=== PATIENT | male | born 1950 | race Caucasian/White ===

== ENCOUNTER → 2017-06-20 | Outpatient (CLI) | payer OTHER ==
[~2017-06-20] MED LIST: ADRENAL COMPLEX PO; ARGI500T2 PO; ASPI-496 PO; ATOR20TA9 PO; BIMA2.5D EACHEYE; CAND32TA7 PO; CHOL500015 PO; CORTISOL MANAGER PO; HAWT150C PO; MAGN100T6 PO; METO25TA91 PO; MULT1TAB57 PO; MULTIMINERAL PO; NIAC500T9 PO; OMEG-26 PO; PHOS1POW PO; PUMP160C2 PO; THYR60TA PO; UBID100C11 PO; [UNRECOGNIZED DRUG - OTHER] PO
== END | disposition home or self-care (01) ==
LOC: ROC 07:25
PROVIDERS: ATTEND Radiology Radiation Oncology
DX: C61 Malignant neoplasm of prostate (principal)
CPT/HCPCS: 99212; G0463

== ENCOUNTER → 2017-12-02 | Outpatient (CLI) | payer MEDICARE, OTHER ==
[~2017-12-02] MED LIST changes: -UBID100C11 PO; +UBID100C41 PO
== END ==
LOC: ROC 08:05
PROVIDERS: ATTEND Radiology Radiation Oncology
DX: C61 Malignant neoplasm of prostate (principal)
CPT/HCPCS: G0463

== ENCOUNTER → 2018-11-03 | Outpatient (CLI) | payer MEDICARE ==
[~2018-11-03] MED LIST changes: +ATOR20TA37 PO; -ATOR20TA9 PO
== END | disposition home or self-care (01) ==
LOC: ROC 07:06
PROVIDERS: ATTEND Radiology Radiation Oncology
DX: Z08 Encounter for follow-up examination after completed treatment for malignant neoplasm (principal); C61 Malignant neoplasm of prostate; R31.9 Hematuria, unspecified
CPT/HCPCS: G0463

== ENCOUNTER → 2018-11-27 | Outpatient (CLI) | payer MEDICARE | END | disposition home or self-care (01) | LOC: CFH 07:22 | PROVIDERS: ATTEND Registered Nurse Registered Nurse First Assistant | DX: Z02.9 Encounter for administrative examinations, unspecified (principal) ==

== ENCOUNTER → 2018-12-29 | Outpatient (CLI) | payer MEDICARE ==
[~2018-12-29] MED LIST changes: +REGADENOSON 0.4 MG/5 ML SYRINGE ONE
== END | disposition home or self-care (01) ==
LOC: CFH 08:25
PROVIDERS: ATTEND Physician Assistant
DX: I10 Essential (primary) hypertension (principal); I25.10 Atherosclerotic heart disease of native coronary artery without angina pectoris; R29.898 Other symptoms and signs involving the musculoskeletal system
CPT/HCPCS: 78452; 93017; A9502; J2785

== ENCOUNTER → 2019-05-14 | Outpatient (CLI) | payer MEDICARE ==
[~2019-05-14] MED LIST changes: -REGADENOSON 0.4 MG/5 ML SYRINGE ONE
== END | disposition home or self-care (01) ==
LOC: ROC 07:43
PROVIDERS: ATTEND Radiology Radiation Oncology
DX: C61 Malignant neoplasm of prostate (principal)
CPT/HCPCS: G0463

== ENCOUNTER 2019-07-02 06:56 | Outpatient (CLI) | payer MEDICARE | END 2019-07-02 23:59 | disposition home or self-care (01) | LOC: CVU 06:56 | PROVIDERS: ATTEND Internal Medicine Cardiovascular Disease | DX: I34.0 Nonrheumatic mitral (valve) insufficiency (principal); I25.10 Atherosclerotic heart disease of native coronary artery without angina pectoris; I10 Essential (primary) hypertension | CPT/HCPCS: 93306 ==

== ENCOUNTER 2020-04-20 09:14 | Outpatient (CLI) | payer MEDICARE ==
[2020-04-20] MEDS ORDERED: PHOS1POW PO (10:17)
[2020-04-20] MEDS ORDERED: Vitamin B12 SL (10:17)
[2020-04-20] MEDS ORDERED: LEVO200T5 PO (10:17)
[2020-04-20] MEDS ORDERED: [UNRECOGNIZED DRUG - OTHER] PO (10:17)
[2020-04-20] MEDS ORDERED: saw palmetto PO (10:17)
[2020-04-20] MEDS ORDERED: METO-93 PO (10:17)
[2020-04-20] MEDS ORDERED: milk thistle PO (10:17)
[2020-04-20] MEDS ORDERED: adrenal support PO (10:17)
[2020-04-20 10:43] LABS: BASOPHILS # (AUTO) 0.03 x10^3/uL (0-0.1); BASOPHILS % (AUTO) 1 % (0-1); EOSINOPHILS % (AUTO) 4 % (1-7); LYMPHOCYTES # (AUTO) 1.68 x10^3/uL (1-3.4); LYMPHOCYTES % (AUTO) 33 % (22-44); MD NO; MEAN CORPUSCULAR HEMOGLOBIN 35.4 pg (27.5-34.5); MEAN CORPUSCULAR HGB CONC 33.8 g/dL (33.2-36.2); MEAN CORPUSCULAR VOLUME 104.7 fL (81-97); MONOCYTES # (AUTO) 0.59 x10^3/uL (0.2-0.8); MONOCYTES % (AUTO) 12 % (2-9); NEUTROPHILS # (AUTO) 2.57 x10^3/uL (1.8-6.8); NEUTROPHILS % (AUTO) 51 % (42-75); PLATELET COUNT 146 x10^3/uL (130-400); RED BLOOD COUNT 4.44 x10^6/uL (4.38-5.82); RED CELL DISTRIBUTION WIDTH 13.3 % (9.4-14.8)
[2020-04-20 10:44] LABS: PROTHROMBIN TIME 10.6 Seconds (9.6-11.5)
[2020-04-20 10:50] LABS: ALANINE AMINOTRANSFERASE 44 U/L (12-78); ALBUMIN 3.9 g/dL (3.4-5.0); ANION GAP 6 mmol/L (5-15); CALCIUM 9.5 mg/dL (8.5-10.1); CHLORIDE 109 mmol/L (98-107); CREATININE 1.01 mg/dL (0.7-1.3)
[2020-04-20 10:53] LABS: ALKALINE PHOSPHATASE 75 U/L (45-117); BILIRUBIN,TOTAL 1.6 mg/dL (0.2-1.0); TOTAL PROTEIN 7.7 g/dL (6.4-8.2)
== END 2020-04-20 23:59 | disposition home or self-care (01) ==
LOC: STAR 09:14
PROVIDERS: ATTEND Urology
DX: Z01.818 Encounter for other preprocedural examination (principal); N32.89 Other specified disorders of bladder; R94.31 Abnormal electrocardiogram [ECG] [EKG]
CPT/HCPCS: 36415; 80053; 85025; 85610; 87086; 93005; U0001-CS

== ENCOUNTER 2020-04-27 06:02 | Day surgery (SDC) | payer MEDICARE ==
[~2020-04-27] VITALS: Ht 177.8 cm; Wt 126.0 kg
[~2020-04-27 06:02] MED LIST changes: +LEVO200T5 PO; +METO-93 PO; +Vitamin B12 SL; +[UNRECOGNIZED DRUG - OTHER] PO; +adrenal support PO; +milk thistle PO; +saw palmetto PO
[2020-04-27 06:35] VITALS: BP 170/68
[2020-04-27] MEDS ORDERED: LACTATED RINGERS 1,000 ML IV SCH (06:38)
[2020-04-27] MEDS ORDERED: CHLORHEXIDINE 15 ML UDC MM ONE (07:00)
[2020-04-27] MEDS ORDERED: ROCURONIUM 10MG/ML,5ML ONE (07:31)
[2020-04-27] MEDS ORDERED: FENTANYL PF 100 MCG/2ML ONE (07:31)
[2020-04-27] MEDS ORDERED: PROPOFOL 10 MG/ML, 20ML ONE (07:31)
[2020-04-27] MEDS ORDERED: MIDAZOLAM 1 MG/ML, 2ML ONE (07:31)
[2020-04-27] MEDS ORDERED: DEXAMETHASONE 4 MG/ML, 1ML ONE (07:33)
[2020-04-27] MEDS ORDERED: ONDANSETRON 2MG/ML, 2ML ONE (07:33)
[2020-04-27] MEDS ORDERED: CEFAZOLIN 1,000 MG ONE ×2 (07:34)
[2020-04-27] MEDS ORDERED: SUGAMMADEX 200 MG/2 ML IVPush ONE (08:15)
[2020-04-27] MEDS ORDERED: OPIUM/BELLADONNA SUPP.RECT 16.2-30 MG ONE (08:28)
[2020-04-27] MEDS ORDERED: KETOROLAC 30 MG/1 ML IVPush PRN (08:30)
[2020-04-27] MEDS ORDERED: HYDROmorphone 1 MG/ML, 1ML INJ IVPush PRN (08:30)
[2020-04-27] MEDS ORDERED: ONDANSETRON 2MG/ML, 2ML IVPush PRN (08:30)
[2020-04-27] MEDS ORDERED: METOPROLOL 1 MG/ML, 5ML IV PRN (08:30)
[2020-04-27] MEDS ORDERED: FENTANYL PF 100 MCG/2ML IV PRN (08:30)
[2020-04-27] MEDS ORDERED: LABETALOL 5MG/ML, 20ML IV PRN (08:30)
[2020-04-27] MEDS ORDERED: OXYcodone 5 MG/5 ML ORAL.SOL UDC PO PRN (08:30)
[2020-04-27] MEDS ORDERED: OPIUM/BELLADONNA SUPP.RECT 16.2-30 MG PR ONE (09:00)
[2020-04-27] MEDS ORDERED: MITOMYCIN INTVESIC ONE (09:00)
[2020-04-27] MEDS ORDERED: SODIUM CHLORIDE 0.9% INTVESIC ONE (09:00)
== END 2020-04-27 10:30 | disposition home or self-care (01) ==
LOC: OUT 06:02
PROVIDERS: ATTEND Urology
DX: D49.4 Neoplasm of unspecified behavior of bladder (principal); C67.2 Malignant neoplasm of lateral wall of bladder; N40.0 Benign prostatic hyperplasia without lower urinary tract symptoms; I25.10 Atherosclerotic heart disease of native coronary artery without angina pectoris; I10 Essential (primary) hypertension; E78.5 Hyperlipidemia, unspecified; E03.9 Hypothyroidism, unspecified; Z88.8 Allergy status to other drugs, medicaments and biological substances; Z95.0 Presence of cardiac pacemaker; Z95.5 Presence of coronary angioplasty implant and graft; Z98.890 Other specified postprocedural states
CPT/HCPCS: 52234; 88305; J0690; J1100; J2250; J2405; J2704; J3010; J7120; J9280

== ENCOUNTER → 2020-05-23 | Outpatient (CLI) | payer MEDICARE | END | disposition home or self-care (01) | LOC: ROC 07:53 | PROVIDERS: ATTEND Radiology Radiation Oncology | DX: Z08 Encounter for follow-up examination after completed treatment for malignant neoplasm (principal); C61 Malignant neoplasm of prostate; I25.10 Atherosclerotic heart disease of native coronary artery without angina pectoris; I10 Essential (primary) hypertension; E78.5 Hyperlipidemia, unspecified; E03.9 Hypothyroidism, unspecified; Z85.51 Personal history of malignant neoplasm of bladder; Z95.1 Presence of aortocoronary bypass graft; Z95.5 Presence of coronary angioplasty implant and graft; Z79.82 Long term (current) use of aspirin | CPT/HCPCS: G0463 ==

== ENCOUNTER 2021-05-25 07:19 | Outpatient (CLI) | payer MEDICARE ==
[~2021-05-25 07:19] MED LIST changes: -MULT1TAB57 PO; +MULT1TAB58 PO
== END 2021-05-25 23:59 | disposition home or self-care (01) ==
LOC: ROC 07:19
PROVIDERS: ATTEND Radiology Radiation Oncology
DX: Z08 Encounter for follow-up examination after completed treatment for malignant neoplasm (principal); Z85.46 Personal history of malignant neoplasm of prostate
CPT/HCPCS: G2251

== ENCOUNTER → 2021-06-27 | Outpatient (CLI) | payer MEDICARE | END | disposition home or self-care (01) | LOC: CVU 07:36 | PROVIDERS: ATTEND Internal Medicine Cardiovascular Disease | DX: I08.0 Rheumatic disorders of both mitral and aortic valves (principal); I10 Essential (primary) hypertension; E78.5 Hyperlipidemia, unspecified; I25.10 Atherosclerotic heart disease of native coronary artery without angina pectoris | CPT/HCPCS: 93306; 93356 ==